=== PATIENT | male | born 1975 | race Caucasian/White ===

== ENCOUNTER 2019-03-13 09:10 | Emergency (ER) | payer BC ==
[~2019-03-13] VITALS: Ht 190.5 cm; Wt 120.2 kg
--- OUTSIDE RECORDS SUMMARY | ~2019-03-13 | XMS | Encounter Summary ---
Demographics + + + | Address | [address] | | | [place] [address] | + + + | Home Phone | | + + + | Preferred Language | Unknown | + + + | Marital Status | | + + + | Sikh Affiliation | Unknown | + + + | Race | Unknown | + + + | Ethnic Group | Unknown | + + + Author + + + | Author | [employer] (Historical as of | | | 01-15-19) | + + + | Organization | [facility] [employer] (Historical as of | | | 01-15-19) | + + + | Address | Unknown | + + + | Phone | Unavailable | + + + Support + + +---------+ + | Name | Relationship | Address | Phone | + + +---------+ + | Ghazala Rodríguez | ECON | Unknown | | + + +---------+ + Care Team Providers + +------+ + | Care Radiation Technician Name | Role | Phone | + +------+ + | Markos Victor MD | PCP | | + +------+ + Encounter Details +--------+ + + + + | Date | Type | Department | Care Team | Description | +--------+ + + + + | 12/17/ | Hospital | [facility] | Ivan Johnson, | | | 2019 | Encounter | [facility] | CAT SITTER [address] | | | | | [address] | [address], | | | | | [place] [address] | [place] [address] | | | | | [phone] | [phone] | | | | | | | | +--------+ + + + + Social History + +-------+ +--------+------+ | Tobacco Use | Types | Packs/Day | Years | Date | | | | | Used | | + +-------+ +--------+------+ | Former Smoker | | | | | + +-------+ +--------+------+ + +---+---+---+ | Smokeless Tobacco: | | | | | Current User | | | | + +---+---+---+ + + + | Sex Assigned at | Date Recorded | | | | + + + | Not on file | | + + + as of this encounter Medications at Time of Discharge + + +-------+---------+ + + | Medication | Sig. | Disp. | Refills | Start | End Date | | | | | | Date | | + + +-------+---------+ + + | albuterol | Inhale 2 puffs into | | | 09/19/ | | | (PROVENTIL HFA) 108 | the lungs. | | | 18 | | | (90 Base) MCG/ACT | | | | | | | inhaler | | | | | | + + +-------+---------+ + + | fluticasone | Inhale into the | | | | | | (FLOVENT HFA) 44 | lungs. | | | | | | MCG/ACT inhaler | | | | | | + + +-------+---------+ + + as of this encounter Plan of Treatment Not on fileas of this encounter Procedures + +--------+ + + + | Procedure Name | Priori | Date/Time | Associated Diagnosis | Comments | | | ty | | | | + +--------+ + + + | XR LUMBAR SPINE | Routin | 12/17/2018 | Lumbar radiculitis | Results for this | | LIMITED 2-3 VIEW | e | 5:43 PM | Sacroiliac joint | procedure are in the | | | | PDT | pain | results section. | + +--------+ + + + in this encounter Visit Diagnoses Not on filein this encounter"
--- OUTSIDE RECORDS SUMMARY | ~2019-03-13 | XMS | Encounter Summary ---
Demographics + + + | Address | [address] | | | [place] [address] | + + + | Home Phone | | + + + | Preferred Language | Unknown | + + + | Marital Status | | + + + | Alevism Affiliation | 1013 | + + + | Race | Unknown | + + + | Ethnic Group | Unknown | + + + Author + + + | Author | [facility] | | | and [place] | + + + | Organization | [facility] | | | and [place] | + + + | Address | Unknown | + + + | Phone | Unavailable | + + + Support + + +---------+ + | Name | Relationship | Address | Phone | + + +---------+ + | Ghazala Rodríguez | ECON | Unknown | | + + +---------+ + Care Team Providers + +------+ + | Care Hvac Services Professional Name | Role | Phone | + +------+ + | Markos Victor MD | PCP | | + +------+ + Reason for Visit + + + | Reason | Comments | + + + | Follow-up | | + + + Encounter Details +--------+ + + + + | Date | Type | Department | Care Team | Description | +--------+ + + + + | 03/08/ | Telephone | [facility] | Mikhail Felicitas Amor, | Follow-up | | 2019 | | 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 | | | | | [address] | | | | | | [place] | | | | | | | | | | | | [address] | | | | | | [phone] | | | +--------+ + + + + Social History + +-------+ +--------+------+ | Tobacco Use | Types | Packs/Day | Years | Date | | | | | Used | | + +-------+ +--------+------+ | Former Smoker | | | | | + +-------+ +--------+------+ + +---+---+---+ | Smokeless Tobacco: | | | | | Former User | | | | + +---+---+---+ + + | Comments: quit 2007 / still chew | + + + + +---------+ + | Alcohol Use | Drinks/We | oz/Week | Comments | | | ek | | | + + +---------+ + | Yes | 42 Cans | 25.2 | | | | of beer | | | + + +---------+ + + + + | Sex Assigned at | Date Recorded | | | | + + + | Not on file | | + + + + + + + | Job Start Date | Occupation | Industry | + + + + | Not on file | Not on file | Not on file | + + + + + + + + | Travel History | Travel Start | Travel End | + + + + + + | No recent travel history available. | + + documented as of this encounter Plan of Treatment +--------+ + + + + | Date | Type | Specialty | Care Team | Description | +--------+ + + + + | 03/21/ | Appointment | Pain Medicine | Moy Navarro DO | | | 2018 | | | [address] | | | | | | [address] | | | | | | [phone] | | | | | | | | +--------+ + + + + documented as of this encounter Visit Diagnoses Not on filedocumented in this encounter"
--- OUTSIDE RECORDS SUMMARY | ~2019-03-13 | XMS | Encounter Summary ---
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
--- OUTSIDE RECORDS SUMMARY | ~2019-03-13 | XMS | Encounter Summary ---
Demographics + + + | Address | [address] | | | [place] [address] | + + + | Home Phone | | + + + | Preferred Language | Unknown | + + + | Marital Status | | + + + | Samaritan Affiliation | 1013 | + + + | Race | Unknown | + + + | Ethnic Group | Unknown | + + + Author + + + | Author | [facility] | | | and [place] | + + + | Organization | [facility] | | | and [place] | + + + | Address | Unknown | + + + | Phone | Unavailable | + + + Support + + +---------+ + | Name | Relationship | Address | Phone | + + +---------+ + | Ghazala Rodríguez ECON | Unknown | | + + +---------+ + Care Team Providers + +------+ + | Care Probate Judge Name | Role | Phone | + +------+ + | Markos Victor MD | PCP | | + +------+ + Encounter Details +--------+ + + + + | Date | Type | Department | Care Team | Description | +--------+ + + + + | 02/08/ | Documentati | [facility] | Ivan Johnson, | | | 2019 | on | [facility] | [facility] [address] | | | | | [address] | | | | | [address] | [place] [address] | | | | | [place], [place] | [phone] | | | | | [address] | | | | | | [phone] | | | +--------+ + + + + Social History + +-------+ +--------+------+ | Tobacco Use | Types | Packs/Day | Years | Date | | | | | Used | | + +-------+ +--------+------+ | Never Smoker | | | | | + +-------+ +--------+------+ + + +---------+ + | Alcohol Use [...] + + documented as of this encounter Progress Notes Ivan Johnson ARNP - 02/08/2019 0935 [address] personally reviewed the patient's physical th erapy documentation and he has completed 8 visits of physical therapy since his date of orig inal evaluation on 12/27/2018. Accordning to documentation he reports only temporary and int ermittent relief from physical therapy.Electronically signed by ROLAND Forman at 03/2019 9:37 PDTdocumented in this encounter Plan of Treatment +--------+ + + + + | Date | Type | Specialty | Care Team | Description | +--------+ + + + + | 03/21/ | Appointment | Pain Medicine | Moy Navarro DO | | | 2018 | | | [address] | | | | | | [place] [address] | | | | | | [phone] | | | | | | | | +--------+ + + + + documented as of this encounter Visit Diagnoses Not on filedocumented in this encounter"
--- OUTSIDE RECORDS SUMMARY | ~2019-03-13 | XMS | Encounter Summary ---
Demographics + + + | Address | [address] | | | [place] [address] | + + + | Home Phone | | + + + | Preferred Language | Unknown | + + + | Marital Status | | + + + | Sabianist Affiliation | Unknown | + + + | Race | Unknown | + + + | Ethnic Group | Unknown | + + + Author + + + | Author | [employer] (Historical as of | | | 01-15-19) | + + + | Organization | [facility] (Historical as of | | | 01-15-19) [...] Team Providers + +------+ + | Care Counselor Aid Name | Role | Phone | + +------+ + | Markos Victor MD | PCP | | + +------+ + Reason for Visit MRI/CAT Scan (Routine) +--------+--------+ + + + + | Status | Reason | Specialty | Diagnoses / | Referred By | Referred To | | | | | Procedures | Contact | Contact | +--------+--------+ + + + + | Closed | | Radiology | Diagnoses | Alex | [facility] | | | | | Lumbar | Ivan Lan, | [address] | | | | | radiculitis | [address] | | | | | Sacroiliac | [address] | [place], [place] | | | | | joint pain | [address] | [address] Phone: | | | | | Procedures | [place], [place] | [phone] | | | | | MRI lumbar | [address] | Fax: | | | | | spine | Phone: | [phone] | | | | | without | [phone] | | | | | | contrast | Fax: | | | | | | | [phone] | | +--------+--------+ + + + + Encounter Details +--------+ + + + + | Date | Type | Department | Care Team | Description | +--------+ + + + + | 12/17/ | Hospital | [facility] | Ivan Johnson, | | | 2019 | Encounter | [facility] | [address] | | | | | [address] | [address], | | | | | [place] [address] | [place] [address] | | | | | [phone] | [phone] | | | | | | | [...] Inhale 2 puffs into | | | 09/20/19 | | | (PROVENTIL HFA) 108 | [...] | + +--------+ + + + | MRI LUMBAR SPINE WO | Routin | 12/17/2018 | Lumbar radiculitis | Results for this | | CONTRAST | e | 5:31 PM | Sacroiliac joint | procedure are in the | | | | PDT | pain | results section. | + +--------+ + + + in this encounter Visit Diagnoses Not on filein this encounter"
--- OUTSIDE RECORDS SUMMARY | ~2019-03-13 | XMS | Encounter Summary ---
Demographics + + + | Address | [address] | | | [place] [address] | + + + | Home Phone | | + + + | Preferred Language | Unknown | + + + | Marital Status | | + + + | Baptism Affiliation | 1013 | + + + | Race | Unknown | + + + | Ethnic Group | Unknown | + + + Author + + + | Author | [facility] | | | and [place] | + + + | Organization | [facility] | | | and [place] | + + + | Address | Unknown | + + + | Phone | Unavailable | + + + Support + + +---------+ + | Name | Relationship | Address | Phone | + + +---------+ + | Rodríguez,Meg | ECON | Unknown | | + + +---------+ + Care Team Providers + +------+ + | Care Deputy Commissioner Name | Role | Phone | + +------+ + | Markos Victor MD | PCP | Unavailable | + +------+ + Encounter Details +--------+ + + + + | Date | Type | Department | Care Team | Description | +--------+ + + + + | 12/17/ | Hospital | [facility] [facility] | Conversion | | | 2019 | Encounter | [facility] | Transaction, | | | | | [address] | Provider Unknown | | | | | [address] | [phone] | | | | | [address] | | | | | | [phone] | Ivan Johnson, | | | | | | [address] | | | | | | [address] | | | | | | [place] [address] | | | | | | [phone] | | | | | | | | +--------+ + + + + Social History + +-------+ +--------+------+ | Tobacco Use | Types | Packs/Day | Years | Date | | | | | Used | | + +-------+ +--------+------+ | Never Smoker | | | | | + +-------+ +--------+------+ + +------+---+---+ | Smokeless Tobacco: | Chew | | | | Current User | | | | + +------+---+---+ + + +---------+ + | Alcohol Use [...] + + documented as of this encounter Medications at Time of Discharge + + + +---------+ + + | Medication | Sig | Dispensed | Refills | Start | End Date | | | | | | Date | | + + + +---------+ + + | albuterol 90 | Inhale 2 puffs into | 1 | 0 | // | | | mcg/puff | the lungs every 6 | Inhaler | | 18 | | | inhalerIndications: | hours as needed for | | | | | | Mild persistent | Wheezing. | | | | | | asthmatic bronchitis | | | | | | | without | | | | | | | complication | | | | | | + + + +---------+ + + | Fluticasone | Inhale into the | | 0 | | | | Propionate HFA | lungs Daily. | | | | | | (FLOVENT HFA IN) | | | | | | + + + +---------+ + + documented as of this encounter Plan of Treatment +--------+ + + + + | Date | Type | Specialty | Care Team | Description | +--------+ + + + + | 03/21/ | Appointment | Pain Medicine | Moy Navarro DO | | | 2018 | | | [address] [facility] | | | | | | [place] [address] | | | | | | [phone] | | | | | | | | +--------+ + + + + documented as of this encounter Visit Diagnoses Not on filedocumented in this encounter"
--- OUTSIDE RECORDS SUMMARY | ~2019-03-13 | XMS | Encounter Summary ---
Demographics + + + | Address | [address] | | | [place] [address] | + + + | Home Phone | | + + + | Preferred Language | Unknown | + + + | Marital Status | | + + + | Sikh Affiliation | 1013 | + + + | Race | Unknown | + + + | Ethnic Group | Unknown | + + + Author + + + | Author | [facility] | | | and [place] | + + + | Organization | [facility] | | | and [place] [...] Team Providers + +------+ + | Care University Demonstrator Name | Role | Phone | + +------+ + | Markos Victor MD | PCP | | + +------+ + Reason for Referral Service/Procedure (Routine) +--------+ + + + + + | Status | Reason | Specialty | Diagnoses / | Referred By | Referred To | | | | | Procedures | Contact | Contact | +--------+ + + + + + | Closed | Specialty | Pain Medicine | Diagnoses | Alex | [facility], | | | Services | | DDD | Ivan M, | Moy, DO | | | Required | | (degenerativ | [facility] [address] | [address] | | | | | e disc | [address] | [address] [place], | | | | | disease), | [address]IVE [address] | [place] [address] | | | | | lumbar | B | Phone: | | | | | Lumbar | [place], | [phone] | | | | | spondylosis | [place] [address] | Fax: | | | | | Lumbar | Phone: | [phone] | | | | | radiculitis | [phone] | | | | | | HNP | Fax: | | | | | | (herniated | [phone] | | | | | | nucleus | | | | | | | pulposus), | | | | | | | lumbar | | | | | | | Spondylolist | | | | | | | hesis, | | | | | | | unspecified | | | | | | | spinal | | | | | | | region | | | +--------+ + + + + + Reason for Visit + + + | Reason | Comments | + + + | Follow-up | | + + + Encounter Details +--------+---------+ + + + | Date | Type | Department | Care Team | Description | +--------+---------+ + + + | 02/10/ | Office | [facility] | Ivan Johnson, | DDD (degenerative | | 2019 | Visit | [facility] | [facility] [address] | disc disease), | | | | [address] | [address] | lumbar (Primary Dx); | | | | [address] | [place] [address] | Lumbar spondylosis; | | | | [place], [place] | [phone] | Lumbar radiculitis; | | | | [address] | | HNP (herniated | | | | [phone] | | nucleus pulposus), | | | | | | lumbar; | | | | | | Spondylolisthesis, | | | | | | unspecified spinal | | | | | | region | +--------+---------+ + + + Social History + +-------+ [...] + + documented as of this encounter Last Filed Vital Signs + + + + | Vital Sign | Reading | Time Taken | + + + + | Blood Pressure | 157/72 | 02/10/20191129 PDT | + + + + | Pulse | 73 | 02/10/20191129 PDT | + + + + | Temperature | - | - | + + + + | Respiratory Rate | 16 | 02/10/20191129 PDT | + + + + | Oxygen Saturation | 96% | 02/10/20191129 PDT | + + + + | Inhaled Oxygen | - | - | | Concentration | | | + + + + | Weight | 123 kg (271 lb 1.6 | 02/10/2019 1130 PDT | | | oz) | | + + + + | Height | 190.5 cm (6' 3") | 02/10/2019 1130 PDT | + + + + | Body Mass Index | 33.89 | 02/10/2019 1130 PDT | + + + + documented in this encounter Patient Instructions Patient Instructions Ivan Johnson ARNP - 02/10/2019 11:45 PDT- Dr. Navarro's medical a ssistant will call you to schedule the procedure. Please feel free to contact my office if you have any questions. - Be mindful of your posture; use of proper body mechanics to avoid any increase in pain. - Continue home exercises and physical therapy as prescribed - Ice/heat therapy as needed - Continue your medication as needed documented in this encounter Progress Notes Ivan Johnson ARNP - 02/10/2019 1145 PDT He rates his pain at its worst a 9/10, at its least a 2/10, on average a 5/10 and is curr ently a 5/10. Subjective: Chief Complaint: Back Pain Patient ID: Kip Rodríguez is a 43 y.o. male HPI Kip Rodríguze is a 43 y.o. male who presents today with low back pain that radiates t o the bilateral lower extremities generally following the L3, L4 and L5 dermatomal distribut ions. He also reports numbness in the anterior shins and medial calves as well as coldness and tingling in bilateral feet and tightness in the musculature surrounding the lumbar spine and SI joints. He states that his chiropractor often comments on inflammation in the SI angela ints. His symptoms began many years ago without inciting injury or trauma. He denies weakn ess or neurogenic claudication symptoms in the. He has been to the emergency department mul tiple times for his back pain. He is here to review imaging and discuss treatment options. Conservative therapies tried and helped include physical therapy, chiropractic, acupuncture and TENS. Conservative therapies tried and failed include massage therapy, heat/cold therap y at least a 6-week trial of NSAIDs and bedrest. Since his last visit he completed 8 docu mented visits of physical therapy with no noticeable improvement in his symptoms. Chiroprac tic is no longer beneficial. He also tried 5 visits of acupuncture. Oswestry Disability Index (MARLIN): Total Score 22 (02/10/19 1600) Percentage 48.89 (02/10 1600) (From Chronic Pain tab; printable questionnaires in [place]ese)Interpretation of Total Score: 0-20% Minimal Disability: The patient can cope with most living activities. Usually no calista tment is indicated apart from advice on lifting, sitting and exercise. 21%-40% Moderate Disability: The patient experiences more pain and difficulty with sitting, lifting and standing. Travel and social life are more difficult and they may be disabled fr om work. Personal care, sexual activity and sleepting are not grossly affected and the patie nt can usually be managed by conservative means. 41%-60% Severe Disability: Pain remains the problem in this group but activities of daily l iving are affected. These patients require a detailed investigation. 61%-80% Crippled: Back pain impinges on all aspects of the patient's life. Positive interve ntion is required. 81%-100% These patients are either bed bound or exaggerating their symptoms. Pain Intensity: 4 - The pain is very severe at the moment (02/10/191599) Personal Care: 3 - I need some help but manage most of my personal care (02/10/191599) Liftin - I can lift heavy weights but it causes increased pain (02/10/191599) Walkin - Pain prevents me from walking more than 1 mile (02/10/191599) Sittin - Pain prevents me from sitting for more than 1/2 hour (02/10/191599) Standin - Pain prevents me from standing more than 1/2 hour (02/10/191599) Sleepin - Because of pain I get less than 6 hours sleep (02/10/191599) Social Life: 2 - Pain prevents me from participating in more energetic activities (ex. spor ts, dancing, etc.) (02/10/191599) Travelin - My pain restricts my travel over 1 hour (02/10/191599) Review of Systems Constitutional: Negative for fever. HENT: Negative for trouble swallowing. Eyes: Negative for visual disturbance. Respiratory: Negative for shortness of breath. Cardiovascular: Negative for chest pain. Gastrointestinal: Negative for abdominal pain. Genitourinary: Negative for difficulty urinating. Musculoskeletal: Positive for back pain and neck pain. Negative for joint swelling. Skin: Negative for rash. Neurological: Negative for dizziness. Hematological: Does not bruise/bleed easily. Psychiatric/Behavioral: Negative for sleep disturbance. All other systems reviewed and are negative. Objective: BP 157/72 | Pulse 73 | Resp 16 | Ht 1.905 m (6' 3") | Wt 123 kg (271 lb 1.6 oz) | SpO2 96% | BMI 33.89 kg/m Physical Exam Constitutional: He is oriented to person, place, and time. He appears well-developed and we ll-nourished. No distress. HENT: Head: Normocephalic and atraumatic. Eyes: Conjunctivae are normal. Right eye exhibits no discharge. Left eye exhibits no discha rge. Neck: Normal range of motion. No tracheal deviation present. No thyromegaly present. Cardiovascular: Normal rate and regular rhythm. Exam reveals no friction rub. No murmur heard. Pulmonary/Chest: Effort normal and breath sounds normal. No respiratory distress. Abdominal: Soft. Bowel sounds are normal. There is no tenderness. Neurological: He is alert and oriented to person, place, and time. No cranial nerve deficit . Skin: Skin is warm and dry. No rash noted. He is not diaphoretic. Psychiatric: He has a normal mood and affect. Lumbar: Axial mechanical lumbar pain upon exam. No fascial tightness and tenderness in the musculature surrounding the lumbar spine and SI joints. Paraspinous tenderness most notabl y at L4-L5, but also present at L3-L4 and L5-S1. Motor: Strength 5/5 throughout Sensory: Increased in the left L4 and L5 dermatomal distributions as compared to the right. Patellar DTRs +2 bilaterally. Straight leg raise positive on the left at 70 degrees. Mil dly antalgic gait. Assessment and Plan: 1. DDD (degenerative disc disease), lumbar 2. Lumbar spondylosis 3. Lumbar radiculitis 4. HNP (herniated nucleus pulposus), lumbar 5. Spondylolisthesis, unspecified spinal region Orders Placed This En[facility] No orders of the defined types were placed in this encounter. Kip Rodríguez is a 43 y.o. male who presents today with low back pain that radiates t o the bilateral lower extremities generally following the L3, L4 and L5 dermatomal distribut ions. He also reports numbness in the anterior shins and medial calves as well as coldness and tingling in bilateral feet and tightness in the musculature surrounding the lumbar spine and SI joints. He states that his chiropractor often comments on inflammation in the SI angela ints. His symptoms began many years ago without inciting injury or trauma. He denies weakn ess or neurogenic claudication symptoms in the. He has been to the emergency department [facility] times for his back pain. He is here to review imaging and discuss treatment options. I personally discussed in detail with the patient current imaging and compared to the spine model. Lumbar flexion and extension x-rays show 6 mm of retrolisthesis of L3 on L4 in exte nsion which reduces to 2 mm anterior listhesis in flexion. 6mm retrolisthesis of L4 on L5 a nd extension which reduces to 2 mm in flexion with minimal retrolisthesis of L2 on L3 and mu ltilevel lumbar spondylosis and facet degeneration. Lumbar MRI shows a posterior disc extru edilberto causing left greater than right neuroforaminal narrowing likely affecting the exiting L 3 nerve roots; the descending L4 nerve roots could also be affected in the lateral recess gi stephanie the instability at this level. There is also 4 mm of motion at L4-L5 which is consisten t with his symptoms. Given the patient's MRI findings, radicular complaints, as well as the physical exam and failure to respond to more conservative therapies I recommend an L3-L4 ep idural steroid injection, followed by an L4 L5 epidural steroid injection approximately 2 to 3 weeks later under fluoroscopy. Plan, alternatives, risks and potential benefits of the procedure were explained to the pat ient in great detail. The patient understands that there is no guarantee they will get pain relief with this procedure. They also understand that if they do get pain relief that ther e is no way to know how long it will last. They also understand there is a risk to the proc edure itself which includes but are not limited to infection, abscess, hematoma, nerve damag e, paraplegia or quadriplegia, increased pain, spinal headache, stroke, and side effects fro m the medications themselves. The patient wishes to proceed. The patient was given written information regarding epidural steroid injections. If he juliann ls to get significant relief after two injections will likely refer to discuss possible surg ical intervention. The patient was encouraged to use proper body mechanics to avoid increas ed pain, continue heat/cold therapy, home exercises, and medications as prescribed. The pat ient is in agreement with the plan. The following portions of the patient's histories were reviewed and updated as appropriate and is available elsewhere in the chart: Allergies, current medications, past family history , past medical history, past surgical history, past surgical history and problem list. ROLAND Pineda has created this entry using [employer] Recognition [employer] and [employer] macros. The entry has been reviewed and there may still exist sound alike word errors. d ocumented in this encounter Plan of Treatment +--------+ + + + + | Date | Type | Specialty | Care Team | Description | +--------+ + + + + | 03/21/ | Appointment | Pain Medicine | Moy Navarro DO | | | 2018 | | | [address] [facility] | | | | | | [place] [address] | | | | | | [phone] | | | | | | | | +--------+ + + + + +---------+--------+ + + | Name | Priori | Associated Diagnoses | Order Schedule | | | ty | | | +---------+--------+ + + | Ramon | Routin | DDD (degenerative | Ordered: 02/10/2019 | | | e | disc disease), | | | | | lumbar Lumbar | | | | | spondylosis Lumbar | | | | | radiculitis HNP | | | | | (herniated nucleus | | | | | pulposus), lumbar | | | | | Spondylolisthesis, | | | | | Unspecified Spinal | | | | | Region | | +---------+--------+ + + documented as of this encounter Visit Diagnoses + + | Diagnosis | + + | DDD (degenerative disc disease), lumbar - Primary Degeneration of lumbar or | | lumbosacral intervertebral disc | + + | Lumbar spondylosis Lumbosacral spondylosis without myelopathy | + + | Lumbar radiculitis Thoracic or lumbosacral neuritis or radiculitis, unspecified | + + | HNP (herniated nucleus pulposus), lumbar Displacement of lumbar intervertebral disc | | without myelopathy | + + | Spondylolisthesis, unspecified spinal region | + + documented in this encounter
--- OUTSIDE RECORDS SUMMARY | ~2019-03-13 | XMS | Encounter Summary ---
Demographics + + + | Address | [address] | | | [place] [address] | + + + | Home Phone | | + + + | Preferred Language | Unknown | + + + | Marital Status | | + + + | Jew Affiliation | Unknown | + + + | Race | Unknown | + + + | Ethnic Group | Unknown | + + + Author + + + | Author | [employer] [facility] (Historical as of | | | 01-15-19) | + + + | Organization | [facility] (Historical as of | | | 01-15-19) [...] Team Providers + +------+ + | Care Credit Rating Inspector Name | Role | Phone | + [...] | Radiology | Diagnoses | Alex | [facility] | | | | | Lumbar | Ivan Lan, | [address] | | | | | radiculitis | PRIMARY [facility] CARE NURSE [address] | | | | | Sacroiliac | [address] | [place], [place] | | | | | joint pain | [address] | [address] Phone: | | | | | Procedures | [place], [place] | [phone] | | | | | MRI lumbar | [address] | Fax: | | | | | spine | Phone: | [phone] | | | | | without | [phone] | | | | | | contrast | Fax: | | | | | | | [phone] | | +--------+--------+ + + + + Encounter Details +--------+ + + + + | Date | Type | Department | Care Team | Description | +--------+ + + + + | 12/17/ | Hospital | [facility] | Ivan Johnson, | | | 2019 | Encounter | [facility] MRI | PRIMARY [facility]ALTH CARE NURSE [address] | | | | | [address] | [address], | | | | | [place] [address] | [place] [address] | | | | | [phone] | [phone] | | | | | | | [...]
--- OUTSIDE RECORDS SUMMARY | ~2019-03-13 | XMS | Encounter Summary ---
Demographics + + + | Address | [address] | | | [place] [address] | + + + | Home Phone | | + + + | Preferred Language | Unknown | + + + | Marital Status | | + + + | Druze Affiliation | Unknown | + + + | Race | Unknown | + + + | Ethnic Group | Unknown | + + + Author + + + | Author | [employer] [facility] (Historical as of | | | 01-15-19) | + + + | Organization | [facility] (Historical as of | | | 01-15-19) [...] Team Providers + +------+ + | Care Supervisor [place] Name | Role | Phone | + +------+ + | Markos Victor MD | PCP | | + +------+ + Encounter Details +--------+ + + + + | Date | Type | Department | Care Team | Description | +--------+ + + + + | 12/10/ | Procedure | [facility] | | | | 2019 | Pass | [facility] | | | | | | [address] | | | | | | [place] | | | | | | [address] | | | | | | [phone] | | | +--------+ + + + [...] + + + as of this encounter Plan of Treatment Not on fileas of this encounter Visit Diagnoses Not on filein this encounter"
--- OUTSIDE RECORDS SUMMARY | ~2019-03-13 | XMS | Encounter Summary ---
Demographics + + + | Address | [address] | | | [place] [address] | + + + | Home Phone | | + + + | Preferred Language | Unknown | + + + | Marital Status | | + + + | Caodaism Affiliation | 1013 | + + + | Race | Unknown | + + + | Ethnic Group | Unknown | + + + Author + + + | Author | [facility] | | | and [place] | + + + | Organization | [facility] | | | and [place] | [...] Team Providers + +------+ + | Care Air Hole Driller Name | Role | Phone | + +------+ + | Markos Victor MD | PCP | | + +------+ + Reason for Visit + + + | Reason | Comments | + + + | Appointment | | + + + Encounter Details +--------+ + + + + | Date | Type | Department | Care Team | Description | +--------+ + + + + | 02/07/ | Telephone | [facility] | Ivan Johnson, | Appointment | | 2019 | | [facility] | FLIGHT MANAGER [address] | | | | | [address] | | | | | [address] | [place] [address] | | | | | [place], [place] | [phone] | | | | | [address] | | | | | | [phone] | | | +--------+ + + + [...] | | 2018 | | | [address] [facility] | | | | | | [place] [address] | | | | | | [phone] | | | | | | | | +--------+ + + + + documented as of this encounter Visit Diagnoses Not on filedocumented in this encounter"
--- OUTSIDE RECORDS SUMMARY | ~2019-03-13 | XMS | Encounter Summary ---
Demographics + + + | Address | [address] | | | [place] [address] | + + + | Home Phone | | + + + | Preferred Language | Unknown | + + + | Marital Status | | + + + | Confucianism Affiliation | 1013 | + + + | Race | Unknown | + + + | Ethnic Group | Unknown | + + + Author + + + | Author | [facility] | | | and [place] | + + + | Organization | [facility] | | | and [place] [...] Team Providers + +------+ + | Care Executive Producer Promos Name | Role | Phone | + +------+ + | Markos Victor MD | PCP | | + +------+ + Reason for Visit + + + | Reason | Comments | + + + | Pre-Procedure | | + + + Encounter Details +--------+ + + + + | Date | Type | Department | Care Team | Description | +--------+ + + + + | 03/04/ | Telephone | [facility] | Moy Navarro DO | Pre-Procedure | | 2019 | | [facility] | [address] | | | | | [address] | [place] [address] | | | | | [address] | [phone] | | | | | [place], [place] | | | | | | [address] | | | | | | [phone] | | | +--------+ + + + [...] | Moy Navarro DO | | | 2019 | | | [address] [facility] | | | | | | [place] [address] | | | | | | [phone] | | | | | | | | +--------+ + + + + documented as of this encounter Visit Diagnoses Not on filedocumented in this encounter"
--- OUTSIDE RECORDS SUMMARY | ~2019-03-13 | XMS | Encounter Summary ---
Demographics + + + | Address | [address] | | | [place] [address] | + + + | Home Phone | | + + + | Preferred Language | Unknown | + + + | Marital Status | | + + + | Jain Affiliation | 1013 | + + + | Race | Unknown | + + + | Ethnic Group | Unknown | + + + Author + + + | Author | [facility] | | | and [place] | + + + | Organization | [facility] | | | and [place] | [...] Team Providers + +------+ + | Care Blockmason Name | Role | Phone | + +------+ + | Markos Victor MD | PCP | | + +------+ + Reason for Visit Service/Procedure (Routine) +--------+--------+ + + + + | Status | Reason | Specialty | Diagnoses / | Referred By | Referred To | | | | | Procedures | Contact | Contact | +--------+--------+ + + + + | Closed | | Anesthesiolog | Diagnoses | Motaghi, | Motaghi, | | | | y - Pain | Low back | Moy, DO | Moy, DO | | | | Medicine / | pain TEO | [address] | [address] | | | | Pain Medicine | Lumbar L[address] | [address] | [address] [place], | | | | | (DTP Ivan | [place], [place] | [place] [address] | | | | | 9-11am) | [address] | Phone: | | | | | Procedures | Phone: | [phone] | | | | | MD NJX | [phone] | Fax: | | | | | DX/THER SBST | Fax: | [phone] | | | | | INTRLMNR | [phone] | | | | | | LMBR/SAC | | | | | | | W/IMG GDN | | | | | | | MD MOD SED | | | | | | | SAME | | | | | | | PHYS/QHP | | | | | | | INITIAL 15 | | | | | | | MINS 5/> YRS | | | | | | | PROCEDURE | | | +--------+--------+ + + + + Encounter Details +--------+ + + + + | Date | Type | Department | Care Team | Description | +--------+ + + + + | 03/07/ | Hospital | [facility] | Moy Navarro DO | DDD (degenerative | | 2019 | Encounter | INTERVENTIONAL PAIN | [address] | disc disease), | | | | MGMT [address] | [place] [address] | lumbar (Primary Dx); | | | | [facility], | [phone] | Lumbar spondylosis; | | | | [place] [address] | | Lumbar radiculitis; | | | | [phone] | | HNP (herniated | | | | | | nucleus pulposus), | | | | | | lumbar | +--------+ + + + + Social [...] + + + | Blood Pressure | 140/93 | 03/07/2019 0937 PDT | + + + + | Pulse | 72 | 03/07/2019936 PDT | + + + + | Temperature | 36.9 C (98.4 F) | 03/07/2019931 PDT | + + + + | Respiratory Rate | 16 | 03/07/2019936 PDT | + + + + | Oxygen Saturation | 95% | 03/07/2019936 PDT | + + + + | Inhaled Oxygen | - | - | | Concentration | | | + + + + | Weight | - | - | + + + + | Height | - | - | + + + + | Body Mass Index | - | - | + + + + documented in this encounter Discharge Instructions Patient Instructions Vida Massey RN - 03/07/2019 9:06 PDTEpidural Steroid Injection Discharge Instructions Activity If you received medication for sedation-analgesia, you may experience drowsiness, dizziness , or blurred vision. You are instructed to: ? Rest for 24 hours; avoid strenuous activity. ? DO NOT drive. Do not perform other tasks in which you are required to be alert and coordi nated for the remainder of the day. ? Do not make important decisions today. ? Do not drink alcoholic beverages including beer, wine, etc. ? If you are diabetic, monitor your blood glucose ? Remove your dressing 2-3 hours after your procedure Medications May resume regular medications Diet You may eat a regular diet. If you are experiencing nausea, limit yourself to clear liquids then slowly advance your diet. Pain Control You may experience mild discomfort from the insertion of the needle for your injection. You may apply an ice pack as needed. Put the ice pack on only while you are awake for 20 minute s on, 20 minutes off. No heat including hot pads, heated seats, hot tubs, hot showers, etc. FOR 3 DAYS Dressing Keep the back dry for 24 hours. Effects It can take up to two weeks to feel the effects of the procedure. Follow-up Appointment Schedule an appointment with your physician as instructed. Report to your doctor if you experience: ? Persistent weakness in arms / legs. ? Continuous bleeding from the injection site. ? Persistent headache longer than 24 hours. ? Nausea / vomiting. ? Fever / chills. ? Any problems and / or concerns regarding this procedure. Dr. Moy Navarro and his staff can be contacted at [phone]. If you are unable to contact your doctor or their associate, you may come to the Emergency Department at [facility]. These instructions have been explained to the patient and escort. The patient received a co py and patient / escort verbalized understanding of these instructions documented in this encounter Medications at Time of Discharge + + + +---------+ + + | Medication | Sig | Dispensed | Refills | Start | End Date | | | | | | Date | | + + + +---------+ + + | albuterol 90 | Inhale 2 puffs into | 1 | 0 | 09/20/19 | | | mcg/puff | the lungs [...] | | 2019 | | | [address] [facility] | | | | | | [place] [address] | | | | | | [phone] | | | | | | | | +--------+ + + + + + +--------+ + + | Name | Priori | Associated Diagnoses | Date/Time | | | ty | | | + +--------+ + + | FL C-Arm | Routin | | 03/07/2019 9:32 PDT | | | e | | | + +--------+ + + + +--------+ + + | Name | Priori | Associated Diagnoses | Order Schedule | | | ty | | | + +--------+ + + | FL C-Arm | Routin | | One time imaging One | | | e | | time imaging for 1 | | | | | Occurrences starting | | | | | 03/07/2019 until | | | | | 03/07/2019 | + +--------+ + + documented as of this encounter [...] | | without myelopathy | + + documented in this encounter Administered Medications + +--------+ +--------+------+------+ | Medication Order | MAR | Action | Dose | Rate | Site | | | Action | Date | | | | + +--------+ +--------+------+------+ | fentaNYL (PF) injection | Given | 03/07/20 | 50 mcg | | | | Intravenous, ONCE PRN, Starting | | 19 9:27 | | | | | 03/07/19 at 0927 | | PDT | | | | + +--------+ +--------+------+------+ +---+---+ | | | +---+---+ + +-------+ +------+---+---+ | midazolam (VERSED) 1 mg/mL | Given | 03/07/20 | 2 mg | | | | injection Intravenous, ONCE PRN, | | 19 9:28 | | | | | Starting 03/07/19 at 0928, | | PDT | | | | | Intra-op | | | | | | + +-------+ +------+---+---+ +---+---+ | | | +---+---+ + +-------+ +-------+---+---+ | sodium chloride 0.9% injection | Given | 03/07/20 | 5 mLs | | | | flush Intravenous, ONCE PRN, | | 19 9:28 | | | | | Starting 03/07/19 at 0928 | | PDT | | | | + +-------+ +-------+---+---+ +---+---+ | | | +---+---+ + +-------+ +-------+---+ + | triamcinolone acetonide | Given | 03/07/20 | 60 mg | | Other | | (KENALOG-40) 40 mg/mL injection | | 19 9:31 | | | (Comment | | ONCE PRN, Starting 03/07/19 at | | PDT | | | ) | | 0929, Intra-op | | | | | | + +-------+ +-------+---+ + +---+---+ | | | +---+---+ documented in this encounter"
--- OUTSIDE RECORDS SUMMARY | ~2019-03-13 | XMS | Encounter Summary ---
Demographics + + + | Address | [address] | | | [place] [address] | + + + | Home Phone | | + + + | Preferred Language | Unknown | + + + | Marital Status | | + + + | Amish Affiliation | 1013 | + + + | Race | Unknown | + + + | Ethnic Group | Unknown | + + + Author + + + | Author | [facility] | | | and [place] | + + + | Organization | [facility] | | | and [place] [...] Team Providers + +------+ + | Care Exterminator Termite Name | Role | Phone | + [...] | 2019 | | [facility] | MULT[facility]LE [facility]IL W[facility]ER [address] | | | | | [address] | | | | | [address] | [place] [address] | | | | | [place], [place] | [phone] | | | | | [address] | | | | | | [phone] | | | +--------+ + + + [...] HOSPITAL | | | | | | [place] [address] | | | | | | [phone] | | | | | | | | +--------+ + + + + documented as of this encounter Visit Diagnoses Not on filedocumented in this encounter"
--- OUTSIDE RECORDS SUMMARY | ~2019-03-13 | XMS | Encounter Summary ---
Demographics + + + | Address | [address] | | | [place] [address] | + + + | Home Phone | | + + + | Preferred Language | Unknown | + + + | Marital Status | | + + + | Scientology Affiliation | 1013 | + + + | Race | Unknown | + + + | Ethnic Group | Unknown | + + + Author + + + | Author | [facility] | | | and [place] | + + + | Organization | [facility] | | | and [place] [...] Team Providers + +------+ + | Care Metal Buffer Name | Role | Phone | + +------+ + | Markos Victor MD | PCP | Unavailable | + +------+ + Encounter Details +--------+ + + + + | Date | Type | Department | Care Team | Description | +--------+ + + + + | 12/17/ | Hospital | [facility] | Conversion | | | 2019 | Encounter | [facility] XRAY | Transaction, | | | | | [address] | Provider Unknown | | | | | [place] | [phone] | | | | | [address] | | | | | | [phone] | | | +--------+ + + + [...] | | 2018 | | | [address] [facility] | | | | | | [place] [address] | | | | | | [phone] | | | | | | | | +--------+ + + + + documented as of this encounter Visit Diagnoses Not on filedocumented in this encounter"
--- OUTSIDE RECORDS SUMMARY | ~2019-03-13 | XMS | Encounter Summary ---
Demographics + + + | Address | [address] | | | [place] [address] | + + + | Home Phone | | + + + | Preferred Language | Unknown | + + + | Marital Status | | + + + | Congregational Affiliation | 1013 | + + + | Race | Unknown | + + + | Ethnic Group | Unknown | + + + Author + + + | Author | [facility] | | | and [place] | + + + | Organization | [facility] | | | and [place] [...] Team Providers + +------+ + | Care Explosive Ordnance Technician Name | Role | Phone | [...] | | Required | | (degenerativ | REAL ESTATE DEVELOPER [address] | [address] | | | | | e disc | [address] | [address] [place], | | | | | disease), | [address] | [place] [address] | | | | | lumbar | B | Phone: | | | | | Lumbar | [place], | [phone] | | | | | spondylosis | [place] [address] | Fax: | | | | | Lumbar | Phone: | [phone] | | | | | radiculitis | [phone] | | | | | | HNP | Fax: | | | | | | (herniated | [phone] | | | | | | nucleus [...] + + | 02/10/ | Office | [facility] | Ivan Johnson, | DDD (degenerative | | 2019 | Visit | [facility] | REAL ESTATE DEVELOPER [address] | disc disease), | | | | [address]Y [address] | lumbar (Primary Dx); | | | | [address] | [place] [address] | Lumbar spondylosis; | | | | [place], [place] | [phone] | Lumbar radiculitis; | | | | [address] | | HNP (herniated | | | | [phone] | | nucleus pulposus), | | | [...] is a 43 y.o. male HPI Kip Rodríguez is a 43 y.o. male [...] (From Chronic Pain tab; printable questionnaires in [place])Interpretation of Total Score: 0-20% Minimal Disability: The [...] spinal region Orders Placed This Encounter Procedures [facility] No orders of the defined types were [...] has been to the emergency department [facility] times for his back pain. He is [...] ROLAND Pineda has created this entry using [employer] Recognition [employer] and DynaPump macros. The entry has been reviewed and [...] | | 2018 | | | [address] [facility] | | | | | | [place] [address] | | | | | | [phone] | | | | | | | | +--------+ + + + + +---------+--------+ + + | Name | Priori | Associated Diagnoses | Order Schedule | | | ty | | | +---------+--------+ + + | Ramno | Routin | DDD (degenerative | Ordered: [...]
--- OUTSIDE RECORDS SUMMARY | ~2019-03-13 | XMS | Clinical Summary ---
Demographics + + + | Address | [address] | | | [place] [address] | + + + | Home Phone [...] | Organization | [facility] | | | and [...] Team Providers + +------+ + | Care Manufacturer Representative Name | Role | Phone | + +------+ + | Markos Victor MD | PCP | | + +------+ + Allergies + + + + + + | Active Allergy | Reactions | Severity | Noted | Comments | | | | | Date | | + + + + + + | Penicillins | Hives | | 03/24/20 | | | | | | 13 | | + + + + + + Medications + + + +---------+------+------+-------+ | Medication | Sig | Dispensed | Refills | Star | End | Statu | | | | | | t | Date | s | | | | | | Date | | | + + + +---------+------+------+-------+ | Fluticasone | Inhale into the | | 0 | | | Activ | | Propionate HFA | lungs Daily. | | | | | e | | (FLOVENT HFA IN) | | | | | | | + + + +---------+------+------+-------+ | albuterol 90 | Inhale 2 puffs into | 1 | 0 | 04/2 | | Activ | | mcg/puff | the lungs every 6 | Inhaler | | 1/20 | | e | | inhalerIndications: | hours as needed for | | | 18 | | | | Mild persistent | Wheezing. | | | | | | | asthmatic bronchitis | | | | | | | | without | | | | | | | | complication | | | | | | | + + + +---------+------+------+-------+ Active Problems + + + | Problem | Noted Date | + + + | DDD (degenerative disc disease), lumbar | 02/10/2019 | + + + | Lumbar spondylosis | 02/10/2019 | + + + | Lumbar radiculitis | 02/10/2019 | + + + | HNP (herniated nucleus pulposus), lumbar | 02/10/2019 | + + + | Spondylolisthesis | 02/10/2019 | + + + Encounters +--------+ + + + + | Date | Type | Specialty | Care Team | Description | +--------+ + + + + | 03/08/ | Telephone | Pain Medicine | Felicitas Elizondo, | Follow-up | | 2018 | | | [employer] Department Supervisor | | +--------+ + + + + | 03/07/ | Hospital | Radiology | Moy Navarro DO | | | 2019 | Encounter | | | | +--------+ + + + + | 03/07/ | Hospital | Pain Medicine | Moy Navarro DO | DDD (degenerative | | 2018 | Encounter | | | disc disease), | | | | | | lumbar (Primary Dx); | | | | | | Lumbar spondylosis; | | | | | | Lumbar radiculitis; | | | | | | HNP (herniated | | | | | | nucleus pulposus), | | | | | | lumbar | +--------+ + + + + | 03/04/ | Telephone | Pain Medicine | Moy Navarro DO | Pre-Procedure | | 2019 | | | | | +--------+ + + + + | 02/10/ | Office | Pain Medicine | Ivan Johnson, | DDD (degenerative | | 2019 | Visit | | CLINICAL REHABILITATION AIDE | disc disease), | | | | | | lumbar (Primary Dx); | | | | | | Lumbar spondylosis; | | | | | | Lumbar radiculitis; | | | | | | HNP (herniated | | | | | | nucleus pulposus), | | | | | | lumbar; | | | | | | Spondylolisthesis, | | | | | | unspecified spinal | | | | | | region | +--------+ + + + + | 02/08/ | Documentati | Pain Medicine | Ivan Johnson, | | | 2018 | on | | CLINICAL REHABILITATION AIDE | | +--------+ + + + + | 02/07/ | Telephone | Pain Medicine | Ivan Johnson, | Appointment | | 2018 | | | CLINICAL REHABILITATION AIDE | | +--------+ + + + + | 12/17/ | Hospital | Radiology | Conversion | | | 2018 | Encounter | | Transaction, | | | | | | Provider Unknown | | +--------+ + + + + | 12/17/ | Hospital | Radiology | Conversion | | | 2018 | Encounter | | Transaction, | | | | | | Provider Unknown | | | | | | Ivan Johnson, | | | | | | CLINICAL REHABILITATION AIDE | | +--------+ + + + + from Last 3 Months Family History + + +------+ + | Medical History | Relation | Name | Comments | + + +------+ + | Alcohol abuse | Father | | | + + +------+ + | Allergies | Father | | | + + +------+ + | Breast cancer | Mother | | | + + +------+ + | Cancer | Mother | | Skin | + + +------+ + | Heart disease | Mother | | | + + +------+ + | Hypertension | Mother | | | + + +------+ + + +------+--------+ + | Relation | Name | Status | Comments | + +------+--------+ + | Father | | | | + +------+--------+ + | Mother | | | | + +------+--------+ + Social History + +-------+ +--------+------+ | [...] recent travel history available. | + + Last Filed Vital Signs + + + + | Vital Sign | Reading | Time Taken | + + + + | Blood Pressure | 140/93 | 03/07/2019936 PDT | + + + [...] | 123 kg (271 lb 1.6 | 02/10/20191129 PDT | | | oz) | | + + + + | Height | 190.5 cm (6' 3") | 02/10/20191129 PDT | + + + + | Body Mass Index | 33.89 | 02/10/20191129 PDT | + + + + Plan of Treatment +--------+ + + + + | Date | Type | Specialty | Care Team | Description | +--------+ + + + + | 03/21/ | Appointment | Pain Medicine | Moy Navarro DO | | | 2019 | | | [address] | | | | | | [place] [address] | | | | | | [phone] | | | | | | | | +--------+ + + + + + + + + + | Health Maintenance | Due Date | Last Done | Comments | + + + + + | Vaccine: | | | | | Dtap/Tdap/Td (1 - | 6 | | | | Tdap) | | | | + + + + + | Vaccine: Influenza | | | | | (#1) | 9 | | | + + + + + Procedures + +--------+ + + + | Procedure Name | Priori | Date/Time | Associated Diagnosis | Comments | | | ty | | | | + +--------+ + + + | XR LUMBAR SPINE 2 OR | Routin | 12/17/2018 | | Results for this | | 3 VW | e | 17:43 PDT | | procedure are in the | | | | | | results section. | + +--------+ + + + | MRI LUMBAR SPINE WO | Routin | 12/17/2018 | | Results for this | | CONTRAST | e | 17:31 PDT | | procedure are in the | | | | | | results section. | + +--------+ + + + from Last 3 Months Results XR Lumbar Spine 2 or 3 Vw (12/17/2018 17:43 PDT) + + | Specimen | + + | | + + + + + | Impressions | Performed At | + + + | 6 mm retrolisthesis of L3 on L4 in extension which translates to 2 | | | mm anterolisthesis in flexion. 6 mm retrolisthesis of L4 on L5 in | | | extension which reduces to 2 mm in flexion. Minimal retrolisthesis | | | of L2 on L3 in flexion and extension without abnormal translational | | | motion. Mild multilevel lumbar spondylosis and facet degeneration. | | | Signed by: Momo Ferreira, Keyur Sign Date/Time: 12/20/2018 3:13 PM | | + + + + + + | Narrative | Performed At | + + + | LUMBAR SPINE TWO OR THREE VIEWS CLINICAL INFORMATION: Lumbar | | | radiculitis, sacroiliac joint pain. COMPARISON: MRI LUMBAR SPINE WO | | | CONTRAST (12/17/2018); LUMBAR STUDY (04/20/2009); FINDINGS: 6 mm | | | retrolisthesis of L3 on L4 in extension which translates to 2 mm | | | anterolisthesis in flexion. 6 mm retrolisthesis of L4 on L5 in | | | extension which reduces to 2 mm in flexion. Minimal retrolisthesis | | | of L2 on L3 in flexion and extension without abnormal translational | | | motion. No acute fracture identified on provided lateral | | | views. Mild multilevel lumbar spondylosis and facet | | | degeneration. Visualized soft tissues grossly unremarkable. | | + + + + + | Procedure Note | + + | Emmanuel, Rad Conversion - 01/12/2019 0010 PDT LUMBAR SPINE TWO OR THREE VIEWS | | CLINICAL INFORMATION: | | Lumbar radiculitis, sacroiliac joint pain. | | COMPARISON: | | MRI LUMBAR SPINE WO CONTRAST (12/17/2018); LUMBAR STUDY (04/20/2009); | | FINDINGS: | | 6 mm retrolisthesis of L3 on L4 in extension which translates to 2 mm | | anterolisthesis in flexion. 6 mm retrolisthesis of L4 on L5 in | | extension which reduces to 2 mm in flexion. Minimal retrolisthesis of | | L2 on L3 in flexion and extension without abnormal translational | | motion. No acute fracture identified on provided lateral views. Mild | | multilevel lumbar spondylosis and facet degeneration. Visualized soft | | tissues grossly unremarkable. | | IMPRESSION: | | 6 mm retrolisthesis of L3 on L4 in extension which translates to 2 mm | | anterolisthesis in flexion. | | 6 mm retrolisthesis of L4 on L5 in extension which reduces to 2 mm in | | flexion. | | Minimal retrolisthesis of L2 on L3 in flexion and extension without | | abnormal translational motion. | | Mild multilevel lumbar spondylosis and facet degeneration. | | Signed by: Momo Ferreira Casey | | Sign Date/Time: 12/20/2018 3:13 PM | + + MRI Lumbar Spine wo Contrast (12/17/2018 17:31 PDT) + + | Specimen | + + | | + + + + + | Impressions | Performed At | + + + | 1. No spinal canal stenosis. 2. Moderate left L3-L4 neural | | | foraminal narrowing. Mild right L3-L4 neural foraminal narrowing. | | | 3. Mild disc degeneration at L4-L5. 4. Other findings as described | | | Signed by: Momo Gonzalez, Miguel Angel Sign Date/Time: 12/20/2018 1:23 PM | | + + + + + + | Narrative | Performed At | + + + | MRI LUMBAR SPINE WITHOUT CONTRAST CLINICAL INFORMATION: Back pain, | | | radiculitis COMPARISON: None PROCEDURE: Sagittal T2, axial T2, | | | sagittal T1, axial T1, sagittal STIR sequences. FINDINGS: Conus and | | | imaged portions of the caudal cord: No abnormal signal of the | | | terminal spinal cord. The conus ends at L1-L2. Lumbar disc levels: | | | T12-L1: No spinal canal stenosis or neural foraminal stenosis. | | | L1-2: Intervertebral disc degeneration. Mild broad-based | | | posterior disc protrusion. No spinal canal stenosis. No neural | | | foraminal stenosis. L2-3: No spinal canal stenosis or neural | | | foraminal stenosis. Minimal retrolisthesis of L2 on L3 measuring | | | 0.3 cm. Facet joints are normal. L3-4: Intervertebral disc | | | desiccation. Posterior disc extrusion with disc material extending | | | superiorly posterior to the L3 vertebral body moderate left neural | | | foraminal narrowing. Mild right neural foraminal narrowing. | | | L4-5: Intervertebral disc desiccation. No spinal canal | | | stenosis. No neural foraminal stenosis. Broad-based posterior | | | disc protrusion. Small posterior central annular fissure. | | | L5-S1: Intervertebral disc height is preserved. No spinal canal | | | stenosis or neural foraminal stenosis. No acute bone marrow edema of | | | the lumbar spine vertebral bodies. | | + + + + + | Procedure Note | + + | Emmanuel, Rad Conversion - 01/12/2019 0010 PDT MRI LUMBAR SPINE WITHOUT CONTRAST | | CLINICAL INFORMATION: | | Back pain, radiculitis | | COMPARISON: | | None | | PROCEDURE: | | Sagittal T2, axial T2, sagittal T1, axial T1, sagittal STIR sequences. | | FINDINGS: | | Conus and imaged portions of the caudal cord: No abnormal signal of the | | terminal spinal cord. The conus ends at L1-L2. | | Lumbar disc levels: | | T12-L1: No spinal canal stenosis or neural foraminal stenosis. | | L1-2: Intervertebral disc degeneration. Mild broad-based posterior | | disc protrusion. No spinal canal stenosis. No neural foraminal | | stenosis. | | L2-3: No spinal canal stenosis or neural foraminal stenosis. Minimal | | retrolisthesis of L2 on L3 measuring 0.3 cm. Facet joints are normal. | | L3-4: Intervertebral disc desiccation. Posterior disc extrusion with | | disc material extending superiorly posterior to the L3 vertebral body | | moderate left neural foraminal narrowing. Mild right neural foraminal | | narrowing. | | L4-5: Intervertebral disc desiccation. No spinal canal stenosis. No | | neural foraminal stenosis. Broad-based posterior disc protrusion. | | Small posterior central annular fissure. | | L5-S1: Intervertebral disc height is preserved. No spinal canal | | stenosis or neural foraminal stenosis. | | No acute bone marrow edema of the lumbar spine vertebral bodies. | | IMPRESSION: | | 1. No spinal canal stenosis. | | 2. Moderate left L3-L4 neural foraminal narrowing. Mild right L3-L4 | | neural foraminal narrowing. | | 3. Mild disc degeneration at L4-L5. | | 4. Other findings as described | | Signed by: Momo Gonzalez, Miguel Angel | | Sign Date/Time: 12/20/2018 1:23 PM | + + from Last 3 Months Insurance +---------+--------+ +--------+ +---------+------+ | Payer | Benefi | Subscriber | Effect | Phone | Address | Type | | | t Plan | ID | charisse | | | | | | / | | Dates | | | | | | Group | | | | | | +---------+--------+ +--------+ +---------+------+ | BCBS | BCBS | [id number] | | | | PPO | | | OOS | 3 | 010-Pr | | | | | | PPO | | esent | | | | +---------+--------+ +--------+ +---------+------+ | PREMERA | PREMER | [id number] | | [phone] | | PPO | | | A | 3 | 010-Pr | 0 | | | | | PREFER | | esent | | | | | | RED | | | | | | +---------+--------+ +--------+ +---------+------+ + +--------+ +--------+ + + | Guarantor Name | Accoun | Relation to | Date | Phone | Billing Address | | | t Type | Patient | of | | | | | | | | | | + +--------+ +--------+ + + | Kip Rodríguez | Person | Self | [birth year] | [address] | | | [place] | | 1975 | [phone] | [address] | | | laila | | | [address] (Home) | [place] [id number] | + +--------+ +--------+ + + | Kip Rodríguez | Person | Self | [birth year] | [address] | | | [place] | | 1975 | [phone] | [address] | | | laila | | | [address] (Home) | [place] [id number] | + +--------+ +--------+ + + Advance Directives Patient has advance care planning documents on file. For more information, please contact:[facility] [place] [address]
--- OUTSIDE RECORDS SUMMARY | ~2019-03-13 | XMS | Encounter Summary ---
Demographics + + + | Address | [address] | | | [place] [address] | + + + | Home Phone | | + + + | Preferred Language | Unknown | + + + | Marital Status | | + + + | Lutheran Affiliation | Unknown | + + + | Race | Unknown | + + + | Ethnic Group | Unknown | + + + Author + + + | Author | [employer] [facility] (Historical as of | | | 01-15-19) | + + + | Organization | [facility] (Historical as of | | | 01-15-19) [...] Team Providers + +------+ + | Care Rotary Driller Prospecting Name | Role | Phone | + +------+ + | Markos Victor MD | PCP | | + +------+ + Reason for Visit +--------+ + | Reason | Comments | +--------+ + | Other | Premier PT Initial Exam | +--------+ + Encounter Details +--------+ + + + + | Date | Type | Department | Care Team | Description | +--------+ + + + + | 01/03/ | Documentati | [facility] | Felicitas Elizondo, | Other (Premier PT | | 2019 | on Only | [facility] | CMM OPERATOR | Initial Exam) | | | | [address] | | | | | | [place] | | | | | | [address] | | | | | | [phone] | | | +--------+ + + + [...]
--- OUTSIDE RECORDS SUMMARY | ~2019-03-13 | XMS | Encounter Summary ---
Demographics + + + | Address | [address] | | | [place] [address] | + + + | Home Phone | | + + + | Preferred Language | Unknown | + + + | Marital Status | | + + + | Tenriism Affiliation | 1013 | + + + | Race | Unknown | + + + | Ethnic Group | Unknown | + + + Author + + + | Author | [facility] | | | and [place] | + + + | Organization | [facility] | | | and [...] Team Providers + +------+ + | Care Director Food Safety Name | Role | Phone | + +------+ + | Markos Victor MD | PCP | | + +------+ + Encounter Details +--------+ + + + + | Date | Type | Department | Care Team | Description | +--------+ + + + + | 03/07/ | Hospital | [facility] | Moy Navarro DO | | | 2019 | Encounter | [facility] | [address] | | | | | XRAY [address] | [place] [address] | | | | | [address] [place] [place], | [phone] | | | | | [place] [address] | | | | | | [phone] | | | +--------+ + + + [...] puffs into | 1 | 0 | 04//20 | | | mcg/puff | the lungs [...] | | 2018 | | | [address] | | | | | | [place] [address] | | | | | | [phone] | | | | | | | | +--------+ + + + + documented as of this encounter Visit Diagnoses Not on filedocumented in this encounter"
--- OUTSIDE RECORDS SUMMARY | ~2019-03-13 | XMS | Encounter Summary ---
Demographics + + + | Address | [address] | | | [place] [address] | + + + | Home Phone | | + + + | Preferred Language | Unknown | + + + | Marital Status | | + + + | Sikhism Affiliation | Unknown | + + + | Race | Unknown | + + + | Ethnic Group | Unknown | + + + Author + + + | Author | [employer] [facility] (Historical as of | | | 01-15-19) | + + + | Organization | [facility] (Historical as of | | | 01-15-19) [...] Team Providers + +------+ + | Care Apron Man Name | Role | Phone | + +------+ + | Markos Victor MD | PCP | | + +------+ + Encounter Details +--------+ + + + + | Date | Type | Department | Care Team | Description | +--------+ + + + + | 12/10/ | Procedure | [facility] | | | | 2019 | Pass | [facility] | | | | | | [address] | | | | | | [place] | | | | | | [address] | | | | | | [phone] | | | +--------+ + + + [...]
--- OUTSIDE RECORDS SUMMARY | ~2019-03-13 | XMS | Encounter Summary ---
Demographics + + + | Address | [address] | | | [place] [address] | + + + | Home Phone | | + + + | Preferred Language | Unknown | + + + | Marital Status | | + + + | Yazidi Affiliation | 1013 | + + + | Race | Unknown | + + + | Ethnic Group | Unknown | + + + Author + + + | Author | [facility] | | | and [place] | + + + | Organization | [facility] | | | and [place] [...] Team Providers + +------+ + | Care Gaming Commissioner Name | Role | Phone | + +------+ + | Markos Victor MD | PCP | | + +------+ + Encounter Details +--------+ + + + + | Date | Type | Department | Care Team | Description | +--------+ + + + + | 02/08/ | Documentati | [facility] | Ivan Johnson, | | | 2019 | on | NEUROSCIENCE [facility]E | [facility] [address] | | | | | [address]OLOROLOGY [address] | | | | | [address] | [place] [address] | | | | | [place], [place] | [phone] | | | | | [address] | | | | | | [phone] | | | +--------+ + + + [...] | | 2018 | | | [address] | | | | | | [place] [address] | | | | | | [phone] | | | | | | | | +--------+ + + + + documented as of this encounter Visit Diagnoses Not on filedocumented in this encounter"
--- OUTSIDE RECORDS SUMMARY | ~2019-03-13 | XMS | Clinical Summary ---
Demographics + + + | Address | [address] | | | [place] [address] | + + + | Home Phone | | + + + | Preferred Language | Unknown | + + + | Marital Status | | + + + | Voodoo Affiliation | Unknown | + + + | Race | Unknown | + + + | Ethnic Group | Unknown | + + + Author + + + | Author | [facility] (Historical as of | | | 01-15-19) | + + + | Organization | [facility] (Historical as of | | | 01-15-19) [...] Team Providers + +------+ + | Care Securities Research Analyst Name | Role | Phone | + +------+ + | Markos Victor MD | PP | | + +------+ + Allergies + + + + + + | Active Allergy | Reactions | Severity | Noted | Comments | | | | | Date | | + + + + + + | Penicillins | Hives | High | 03/24/20 | | | | | | 13 | | + + + + + + Current Medications + + +-------+---------+------+------+-------+ | Prescription | Sig. | Disp. | Refills | Star | End | Statu | | | | | | t | Date | s | | | | | | Date | | | + + +-------+---------+------+------+-------+ | albuterol | Inhale 2 puffs into | | | 04/2 | | Activ | | (PROVENTIL HFA) 108 | the lungs. | | | 1/20 | | e | | (90 Base) MCG/ACT | | | | 18 | | | | inhaler | | | | | | | + + +-------+---------+------+------+-------+ | fluticasone | Inhale into the | | | | | Activ | | (FLOVENT HFA) 44 | lungs. | | | | | e | | MCG/ACT inhaler | | | | | | | + + +-------+---------+------+------+-------+ Active Problems No known active problems Encounters +--------+ + + + + | Date | Type | Specialty | Care Team | Description | +--------+ + + + + | 01/13/ | Telephone | | Felicitas Elizondo, | | | 2018 | | | CAPSULE INSPECTOR | | +--------+ + + + + | 01/03/ | Documentati | | Felicitas Elizondo, | Other ( PT | | 2018 | on Only | | CAPSULE INSPECTOR | Initial Exam) | +--------+ + + + + | 12/17/ | Hospital | | Ivan Johnson, | | | 2018 | Encounter | | WELDING INSTRUCTOR | | +--------+ + + + + | 12/17/ | Hospital | | Ivan Johnson, | | | 2019 | Encounter | | WELDING INSTRUCTOR | | +--------+ + + + + | 12/10/ | Procedure | | | | | 2018 | Pass | | | | +--------+ + + + + from Last 3 Months Social History + +-------+ +--------+------+ | Tobacco [...] on file | | + + + Last Filed Vital Signs + + + + | Vital Sign | Reading | Time Taken | + + + + | Blood Pressure | - | - | + + + + | Pulse | - | - | + + + + | Temperature | - | - | + + + + | Respiratory Rate | - | - | + + + + | Oxygen Saturation | - | - | + + + + | Inhaled Oxygen | - | - | | Concentration | | | + + + + | Weight | 122 kg (269 lb) | 12/10/2018 10:52 AM PDT | + + + + | Height | 190.5 cm (6' 3") | 12/10/2018 10:52 AM PDT | + + + + | Body Mass Index | 33.62 | 12/10/2018 10:52 AM PDT | + + + + Plan of Treatment + + + + + | Health [...] + from Last 3 Months Results XR lumbar spine limited 2-3 views (12/17/2018 5:43 PM) + + + | Impressions | Performed At | + + + | 6 mm retrolisthesis of L3 on L4 in extension which translates to 2 | [facility] | | mm anterolisthesis in flexion. 6 mm retrolisthesis of L4 on L5 in | RADIOLOGY | | extension which reduces to 2 [...] OR THREE VIEWS CLINICAL INFORMATION: Lumbar | [facility] | | radiculitis, sacroiliac joint pain. COMPARISON: MRI LUMBAR SPINE WO | RADIOLOGY | | CONTRAST (12/17/2018); LUMBAR STUDY (04/20/2009); [...] Note | + + | Emmanuel, Rad Results In - 12/20/2018 3:16 PM PDT LUMBAR SPINE TWO OR THREE VIEWS [...] Date/Time: 12/20/2018 3:13 PM | + + + + + + + | Performing | Address | City/State[facility] | Phone Number | | Organization | | | | + + + + + | [facility] | [address] | [place] [address] | | + + + + + MRI lumbar spine without contrast (12/17/2018 5:31 PM) + + + | Impressions | Performed At | + + + | 1. No spinal canal stenosis. 2. Moderate left L3-L4 neural | [facility] | | foraminal narrowing. Mild right L3-L4 neural foraminal narrowing. | RADIOLOGY | | 3. Mild disc degeneration at L4-L5. 4. Other findings as described | | | Signed by: Momo Gonzalez, Miguel Angel Sign Date/Time: 12/20/2018 1:23 PM | | + + + + + + | Narrative | Performed At | + + + | MRI LUMBAR SPINE WITHOUT CONTRAST CLINICAL INFORMATION: Back pain, | [facility] | | radiculitis COMPARISON: None PROCEDURE: Sagittal T2, axial T2, | RADIOLOGY | | sagittal T1, axial T1, sagittal [...] Note | + + | Emmanuel, Rad Results In 12/20/2018 1:26 PM PDT MRI LUMBAR SPINE WITHOUT CONTRAST | [...] as described | | Signed by: Momo Gonzalez Isaac | | Sign Date/Time: 12/20/2018 1:23 PM | + + + + + + + | Performing | Address | City/State/Zipcode | Phone Number | | Organization | | | | + + + + + | [facility] | [address] | [place] [address] | | + + + + + from Last 3 Months Insurance +---------+--------+ +------+-------+ + | Payer | Benefi | Subscriber | Type | Phone | Address | | | t Plan | ID | | | | | | / | | | | | | | Group | | | | | +---------+--------+ +------+-------+ + | PREMERA | PREMER | [id number] | | | [address] [address] | | | A BLUE | 3 | | | [place], [place] | | | CARD | | | | [phone] | +---------+--------+ +------+-------+ + + +--------+ +--------+ + + | Guarantor Name | Accoun | Relation to | Date | Phone | Billing Address | | | t Type | Patient | of | | | | | | | | | | + +--------+ +--------+ + + | KPI RODRÍGUEZ | Person | Self | [birth year] | Home: | [address] | | | [place] | | 1974 | [phone] [address] | | | [address] | | | [phone] | [place] [address] | + +--------+ +--------+ + +
--- OUTSIDE RECORDS SUMMARY | ~2019-03-13 | XMS | Encounter Summary ---
Demographics + + + | Address | [address] | | | [place] [address] | + + + | Home Phone | | + + + | Preferred Language | Unknown | + + + | Marital Status | | + + + | Jew Affiliation | Unknown | + + + | Race | Unknown | + + + | Ethnic Group | Unknown | + + + Author + + + | Author | [facility] [email or web address] (Historical as of | | | 01-15-19) | + + + | Organization | [facility] [email or web address] (Historical as of | | | 01-15-19) [...] Team Providers + +------+ + | Care Senior Environmental Consultant Name | Role | Phone | + +------+ + | Markos Victor MD | PCP | | + +------+ + Encounter Details +--------+ + + + + | Date | Type | Department | Care Team | Description | +--------+ + + + + | 01/13/ | Telephone | [facility] | Felicitas Elizondo, | | | 2019 | | [facility] | BAND REAMER MACHINE OPERATOR | | | | | [address] | | | | | | [place] | | | | | | [address] | | | | | | [phone] | | | +--------+ + + + [...]
--- OUTSIDE RECORDS SUMMARY | ~2019-03-13 | XMS | Encounter Summary ---
Demographics + + + | Address | [address] | | | [place] [address] | + + + | Home Phone | | + + + | Preferred Language | Unknown | + + + | Marital Status | | + + + | Samaritan Affiliation | 1013 | + + + | Race | Unknown | + + + | Ethnic Group | Unknown | + + + Author + + + | Author | [facility] | | | and [place] | + + + | Organization | [facility] | | | and [...] Team Providers + +------+ + | Care Seo Intern Name | Role | Phone | + [...] + + | 03/04/ | Telephone | [facility] | Moy Navarro DO | Pre-Procedure | | 2019 | | [facility] | [address] | | | | | [address] | [place] [address] | | | | | TAMIA GARZA B | [phone] | | | | | [place], [place] | | | | | | [address] | | | | | | [phone] | | | +--------+ + + + [...] | | 2019 | | | [address] [facility] | | | | | | [place] [address] | | | | | | [phone] | | | | | | | | +--------+ + + + + documented as of this encounter Visit Diagnoses Not on filedocumented in this encounter"
--- OUTSIDE RECORDS SUMMARY | ~2019-03-13 | XMS | Encounter Summary ---
Demographics + + + | Address | [address] | | | [place] [address] | + + + | Home Phone | | + + + | Preferred Language | Unknown | + + + | Marital Status | | + + + | Mormon Affiliation | 1013 | + + + | Race | Unknown | + + + | Ethnic Group | Unknown | + + + Author + + + | Author | [facility] | | | and [place] | + + + | Organization | [facility] | | | and [...] Team Providers + +------+ + | Care Drop Hammer Operator Helper Name | Role | Phone | + +------+ + | Markos Victor MD | PCP | | + +------+ + Encounter Details +--------+ + + + + | Date | Type | Department | Care Team | Description | +--------+ + + + + | 03/07/ | Hospital | [facility] | Moy Navarro DO | | | 2019 | Encounter | [facility] | [address] | | | | | XRAY [address] | [place] [address] | | | | | [address] [place], | [phone] | | | | | [place] [address] | | | | | | [phone] | | | +--------+ + + + [...] [address] | | | | | | [place] [address] | | | | | | [phone] | | | | | | | | +--------+ + + + + documented as of this encounter Visit Diagnoses Not on filedocumented in this encounter"
--- OUTSIDE RECORDS SUMMARY | ~2019-03-13 | XMS | Clinical Summary ---
Demographics + + + | Address | [address] | | | [place] [address] | + + + | Home Phone | | + + + | Preferred Language | Unknown | + + + | Marital Status | | + + + | Jewish Affiliation | Unknown | + + + | Race | Unknown | + + + | Ethnic Group | Unknown | + + + Author + + + | Author | [email or web address] (Historical as of | | | 01-15-19) | + + + | Organization | [facility] [email or web address] (Historical as of | | | 01-15-19) [...] Team Providers + +------+ + | Care Automotive Glass Installer Name | Role | Phone | + [...] | | | 2018 | | | SENIOR SOFTWARE DEVELOPMENT MANAGER | | +--------+ + + + + | 01/03/ | Documentati | | Felicitas Elizondo, | Other ( PT | | 2018 | on Only | | SENIOR SOFTWARE DEVELOPMENT MANAGER | Initial Exam) | +--------+ + + + + | 12/17/ | Hospital | | Ivan Johnson, | | | 2018 | Encounter | | TOSSER | | +--------+ + + + + | 12/17/ | Hospital | | Ivan Johnson, | | | 2019 | Encounter | | TOSSER | | +--------+ + + + + [...] + + | Performing | Address | City/State[facility] | Phone Number | | Organization | | | | + + + + + | [facility] | [address] | [place] [address] | | + + + + + [...] | + + + + + | [facility] | [address] | [place] [address] | | + + + + + from Last 3 Months Insurance +---------+--------+ +------+-------+ + | Payer | Benefi | Subscriber | Type | Phone | Address | | | t Plan | ID | | | | | | / | | | | | | | Group | | | | | +---------+--------+ +------+-------+ + | PREMERA | PREMER | [id number] | | | [address] [address] | | | A BLUE | 3 | | | [place], [place] | | | CARD | | | | [phone] | +---------+--------+ +------+-------+ + + +--------+ +--------+ + + | Guarantor Name | Accoun | Relation to | Date | Phone | Billing Address | | | t Type | Patient | of | | | | | | | | | | + +--------+ +--------+ + + | KIP RODRÍGUEZ | Person | Self | [birth year] | Home: | [address] | | | [place] | | 1974 | [phone] | [place] | | | laila | | | [phone] | [place] [address] | + +--------+ +--------+ + +
--- OUTSIDE RECORDS SUMMARY | ~2019-03-13 | XMS | Clinical Summary ---
Demographics + + + | Address | [address] | | | [place] [address] | + + + | Home Phone | | + + + | Preferred Language | Unknown | + + + | Marital Status | | + + + | Episcopalian Affiliation | 1013 | + + + | Race | Unknown | + + + | Ethnic Group | Unknown | + + + Author + + + | Author | [facility] | | | and [place] | + + + | Organization | [facility] | | | and [...] Team Providers + +------+ + | Care Asbestos Shingle Roofer Name | Role | Phone | + [...] Follow-up | | 2018 | | | Private Tutors And Teachers | | +--------+ + + + + [...] | | 2019 | Visit | | INDIRECT SALES EXEC | disc disease), | | | | [...] | | 2018 | on | | INDIRECT SALES EXEC | | +--------+ + + + + | 02/07/ | Telephone | Pain Medicine | Ivan Johnson, | Appointment | | 2018 | | | INDIRECT SALES EXEC | | +--------+ + + + + [...] Johnson, | | | | | | INDIRECT SALES EXEC | | +--------+ + + + + [...] | | 2019 | | | [address] [facility] | | | | | | [place] [address] | | | | | | [phone] | | | | | | | [...] | | t Plan | ID | chraisse | | | | | | / | | Dates | | | | | | Group | | | | | | +---------+--------+ +--------+ +---------+------+ | BCBS | BCBS | [id number] | | | | PPO | | | OOS | 3 | 010-Pr | | | | | | PPO | | esent | | | | +---------+--------+ +--------+ +---------+------+ | PREMERA | PREMER | [id number] | | [phone] | | PPO | [...] Person | Self | [birth year] | [address] | | | al/[place] | | 1975 | [phone] | [place] | | | laila | | | 2 (Home) | [place] [id number] | + +--------+ +--------+ + + | Kip Rodríguez | Person | Self | [birth year] | | [address] | | | [place] | | 1975 | [phone] | [place] | | | laila | | | [address] (Home) | [place] [id number] | + +--------+ +--------+ + + Advance Directives Patient has advance care planning documents on file. For more information, please contact:[facility] [place] [address]
--- OUTSIDE RECORDS SUMMARY | ~2019-03-13 | XMS | Encounter Summary ---
Demographics + + + | Address | [address] | | | [place] [address] | + + + | Home Phone | | + + + | Preferred Language | Unknown | + + + | Marital Status | | + + + | Worship Affiliation | Unknown | + + + | Race | Unknown | + + + | Ethnic Group | Unknown | + + + Author + + + | Author | [facility] (Historical as of | | | 01-15-19) | + + + | Organization | [facility] (Historical as of | | | 01-15-19) [...] Team Providers + +------+ + | Care Employment Assistant Name | Role | Phone | + [...] | on Only | [facility] | UNDERWRITING CONSULTANT | Initial Exam) | | | | [address] | | | | | | [place] | | | | | | [address] | | | | | | [phone] | | | +--------+ + + + [...]
--- OUTSIDE RECORDS SUMMARY | ~2019-03-13 | XMS | Encounter Summary ---
Demographics + + + | Address | [address] | | | [place] [address] | + + + | Home Phone | | + + + | Preferred Language | Unknown | + + + | Marital Status | | + + + | Catholic Affiliation | 1013 | + + + | Race | Unknown | + + + | Ethnic Group | Unknown | + + + Author + + + | Author | [facility] | | | and [place] | + + + | Organization | [facility] | | | and [place] | [...] Team Providers + +------+ + | Care Last Pattern Grader Name | Role | Phone | + [...] | Lumbar L3-4 | ST | [address] [place], | | | | | (DTP Ivan | [place], [place] | [place] [address] | | | | | 9-11am) | [address] | Phone: | | | | | Procedures | Phone: | [phone] | | | | | PA NJX | [phone] | Fax: | | | | | DX/THER SBST | Fax: | [phone] | | | | | INTRLMNR | [phone] | | | | | | LMBR/SAC | | | | | | | W/IMG GDN | | | | | | | PA MOD SED | | | | | [...] + + | 03/07/ | Hospital | [facility] | Moy Navarro DO | DDD (degenerative | | 2019 | Encounter | INTERVENTIONAL PAIN | [address] | disc disease), | | | | MGMT [address] | [place] [address] | lumbar (Primary Dx); | | | | [facility], | [phone] | Lumbar spondylosis; | | | | [place] [address] | | Lumbar radiculitis; | | | | [phone] | | HNP (herniated | | | [...] and his staff can be contacted at [phone]. If you are unable to contact your doctor or their associate, you may come to the Emergency Department at [facility]. These instructions have been explained to the [...] | | 2019 | | | [address] [facility] | | | | | | [place] [address] | | | | | | [phone] | | | | | | | [...]
--- OUTSIDE RECORDS SUMMARY | ~2019-03-13 | XMS | Encounter Summary ---
Demographics + + + | Address | [address] | | | [place] [address] | + + + | Home Phone | | + + + | Preferred Language | Unknown | + + + | Marital Status | | + + + | Temple Affiliation | Unknown | + + + | Race | Unknown | + + + | Ethnic Group | Unknown | + + + Author + + + | Author | [employer] [facility] (Historical as of | | | 01-15-19) | + + + | Organization | [facility] (Historical as of | | | 01-15-19) [...] Team Providers + +------+ + | Care Solar Energy Consultant And Designer Name | Role | Phone | + +------+ + | Markos Victor MD | PCP | | + +------+ + Encounter Details +--------+ + + + + | Date | Type | Department | Care Team | Description | +--------+ + + + + | 01/13/ | Telephone | [facility] | Felicitas Elizondo, | | | 2019 | | [facility] | CRIMINALIST TECHNICIAN | | | | | [address] | | | | | | [place] | | | | | | [address] | | | | | | [phone] | | | +--------+ + + + [...]
--- OUTSIDE RECORDS SUMMARY | ~2019-03-13 | XMS | Encounter Summary ---
Demographics + + + | Address | [address] | | | [place] [address] | + + + | Home Phone | | + + + | Preferred Language | Unknown | + + + | Marital Status | | + + + | Moravian Affiliation | Unknown | + + + | Race | Unknown | + + + | Ethnic Group | Unknown | + + + Author + + + | Author | [facility] [facility] (Historical as of | | | 01-15-19) | + + + | Organization | [facility] (Historical as of | | | 01-15-19) [...] Providers + +------+ + | Care Executive Meeting Manager Name | Role | Phone | + +------+ + | Markos Victor MD | PCP | | + +------+ + Encounter Details +--------+ + + + + | Date | Type | Department | Care Team | Description | +--------+ + + + + | 12/17/ | Hospital | [facility] | Ivan Johnson, | | | 2019 | Encounter | [facility] | CERTIFIED MASSAGE THERAPIST [address] | | | | | [address] | [address], | | | | | [place] [address] | [place] [address] | | | | | [phone] | [phone] | | | | | | | [...]
--- OUTSIDE RECORDS SUMMARY | ~2019-03-13 | XMS | Encounter Summary ---
Demographics + + + | Address | [address] | | | [place] [address] | + + + | Home Phone | | + + + | Preferred Language | Unknown | + + + | Marital Status | | + + + | Zoroastrianism Affiliation | 1013 | + + + | Race | Unknown | + + + | Ethnic Group | Unknown | + + + Author + + + | Author | [facility] | | | and [place] | + + + | Organization | [facility] | | | and [place] [...] Team Providers + +------+ + | Care Dental Laboratory Technician Apprentice Name | Role | Phone | + +------+ + | Markos Victor MD | PCP | Unavailable | + +------+ + Encounter Details +--------+ + + + + | Date | Type | Department | Care Team | Description | +--------+ + + + + | 12/17/ | Hospital | [facility] | Conversion | | | 2019 | Encounter | [facility] | Transaction, | | | | | [address] | Provider Unknown | | | | | [place] | [phone] | | | | | [address] | | | | | | [phone] | Ivan Johnson, | | | | | | [address] | | | | | | [address] | | | | | | [place] [address] | | | | | | [phone] | | | | | | | [...] | | 2018 | | | [address] [facility] | | | | | | [place] [address] | | | | | | [phone] | | | | | | | | +--------+ + + + + documented as of this encounter Visit Diagnoses Not on filedocumented in this encounter"
--- OUTSIDE RECORDS SUMMARY | ~2019-03-13 | XMS | Encounter Summary ---
Demographics + + + | Address | [address] | | | [place] [address] | + + + | Home Phone | | + + + | Preferred Language | Unknown | + + + | Marital Status | | + + + | Cheondoism Affiliation | 1013 | + + + | Race | Unknown | + + + | Ethnic Group | Unknown | + + + Author + + + | Author | [facility] | | | and [place] | + + + | Organization | [facility] [...] Team Providers + +------+ + | Care Hazardous Materials Handler Name | Role | Phone | + +------+ + | Markos Victor MD | PCP | Unavailable | + +------+ + Encounter Details +--------+ + + + + | Date | Type | Department | Care Team | Description | +--------+ + + + + | 12/17/ | Hospital | [facility] | Conversion | | | 2019 | Encounter | [facility]ICAL [facility]ENTER XRAY | Transaction, | | | | | [address] | Provider Unknown | | | | | [place] | [phone] | | | | | [address] | | | | | | [phone] | | | +--------+ + + + [...] | | 2018 | | | [address] [facility] | | | | | | [place] [address] | | | | | | [phone] | | | | | | | | +--------+ + + + + documented as of this encounter Visit Diagnoses Not on filedocumented in this encounter"
[2019-03-13] MEDS ORDERED: VENTOLIN HFA18 GM (09:23)
== END 2019-03-13 11:10 | disposition home or self-care (01) ==
LOC: ED 09:10
PROC: 0H9FXZZ Drainage of Right Hand Skin, External Approach (ICD-10-PCS; principal; 2019-03-13)
DX: L02.511 Cutaneous abscess of right hand (principal); Z88.0 Allergy status to penicillin
CPT/HCPCS: 26010; 99282-25